=== PATIENT | male | born 1955 | race Caucasian/White ===

== ENCOUNTER 2019-03-10 05:04 | Inpatient (IN) | payer OTHER ==
[~2019-03-10] VITALS: Ht 175.3 cm; Wt 98.1 kg
[~2019-03-10 05:04] MED LIST: ONDANSETRON 4 MG TAB.RAPDIS ONE
--- NOTE | 2019-03-10 05:20 | NUR ---
DAY SURGERY ADMISSION NOTES Received patient from home A/O x4, awake. Assisted to bed comfortably, noted with steady gait with cane. at bedside. Belongings taken cared of by the . Admission routine done. Skin assessment done, photo taken and documented. Consents signed by the patient. Kept on bed clean, dry and comfortable. Call light at bedside.
[2019-03-10 05:44] VITALS: BP 144/96
[2019-03-10] MEDS ORDERED: CEFAZOLIN 1 GM ONE (05:57)
[2019-03-10] MEDS ORDERED: TRANEXAMIC ACID 3,000 MG in SODIUM CHLORIDE IRRIG SOLUTION 70 ML IR ONE (06:00)
[2019-03-10] MEDS ORDERED: CEFAZOLIN 1 GM in IV NS 0.9% 50 ML IV SCH (06:00)
--- NOTE | 2019-03-10 06:10 | NUR ---
MS RN NOTES Patient picked up by 2 OR staff for the scheduled surgery Left total knee arthroplasty via hospital bed. Endorsed to OR staff the Ancef 1gm. OR staff notified Tranexamic Acid not available at the floor. Patient's belongings taken cared of by the .
[2019-03-10] MEDS ORDERED: BUPIVACAINE MPF 0.5% W/EPI INJ 30 ML VIAL ONE (06:28)
[2019-03-10] MEDS ORDERED: BACITRACIN 50000 UNITS/VIAL ONE (06:28)
[2019-03-10] MEDS ORDERED: HYDROMORPHONE 1 MG/1 ML DISP.SYRIN SQ PRN (06:30)
[2019-03-10] MEDS ORDERED: ONDANSETRON HCL/PF 4 MG/2 ML VIAL IV PRN (06:30)
[2019-03-10] MEDS ORDERED: diphenhydrAMINE HCL 25 MG CAPSULE PO PRN (06:30)
[2019-03-10] MEDS ORDERED: MORPHINE SULFATE/PF 30 MG in IV NS 0.9% 27 ML, PCA TOTAL VOLUME 1 BAG IV PRN ×3 (06:30)
[2019-03-10] MEDS ORDERED: MAG HYDROX/AL HYDROX/SIMETH 30 ML UDC PO PRN (06:30)
[2019-03-10] MEDS ORDERED: LORAZEPAM 1 MG TABLET PO SCH (06:30)
[2019-03-10] MEDS ORDERED: MIDAZOLAM HCL 2 MG/2ML VIAL ONE (06:32)
[2019-03-10] MEDS ORDERED: FENTANYL PF 250MCG/5ML AMPUL ONE ×2 (06:33)
[2019-03-10] MEDS ORDERED: ROCURONIUM BROMIDE 50 MG/5 ML ONE (06:34)
[2019-03-10] MEDS ORDERED: MEPERIDINE HCL/PF 100 MG/ML DISP.SYRIN ONE (06:34)
[2019-03-10] MEDS ORDERED: FAMOTIDINE/PF INJ 20 MG/2 ML VIAL IV ONE (06:34)
[2019-03-10] MEDS ORDERED: HYDROMORPHONE MDV 30 MG in IV NS 0.9% 15 ML, PCA TOTAL VOLUME 1 BAG IV PRN ×3 (07:00)
[2019-03-10] MEDS ORDERED: ATOR10TA PO (07:28)
--- NOTE | 2019-03-10 07:32 | NUR ---
RN medsurg notes Informed Pharm[facility] that Pt is taking lipitor 5mg and Vancomycin. Will endorse to morning nurse.
[2019-03-10] MEDS: FAMOTIDINE (20 MG) 20 MG TABLET PO SCH ×3 (08:57→21:44)
[2019-03-10] MEDS ORDERED: HYDROMORPHONE INJ 2 MG/ML DISP.SYRIN ONE (09:00)
[2019-03-10] MEDS ORDERED: FENTANYL PF 100MCG/2ML AMPUL ONE (09:19)
[2019-03-10] MEDS ORDERED: ZOFRAN 4mg/2ML IV PRN (10:00)
[2019-03-10] MEDS ORDERED: DULCOLAX 10 MG/SUPP.RECT RC PRN (10:00)
[2019-03-10] MEDS ORDERED: SENOKOT 8.6 MG TABLET PO PRN (10:00)
[2019-03-10] MEDS ORDERED: HYDROCODONE/APAP 5/325MG 1 EACH TABLET PO PRN (10:00)
[2019-03-10] MEDS ORDERED: TYLENOL 650 MG TABLET PO PRN (10:00)
[2019-03-10] MEDS ORDERED: COLACE 250 MG CAPSULE PO PRN (10:00)
--- NOTE | 2019-03-10 10:15 | NUR ---
MS AMERICAN INDIAN STUDIES PROFESSOR NOTES RECEIVED PT FROM O.R. S/P REVISION OF LT TOTAL KNEE ARTHROPLASTY BY DR RAMOS. ALERT AND ORIENTED X4.VERBALLY RESPONSIVE. NO SOB WITH O2 AT 2L/MIN VIA NC.DENIES ANY PAIN AT THIS TIME.PT SLEEPING BUT AROUSABLE.WITH LLE IMMOBILIZER ON AND WITH ICE PACKS APPLIED TO LLE.WITH PATRICIA MIDLINE INTACT.STARTED ON MORPHINE DRIP VIA ACCOUNTING LECTURER WITH ACCOUNTING LECTURER DEMAND DOSE OF 1 MG -LOCKOUT OF 10 MINS WITH 1 HR LIMIT OF 6 MG.PT TEACHING PROVIDED ON HOW TO USE THE ACCOUNTING LECTURER BOLUS DOSE . PT EVAL TX,NO MOTION AND FIRST DRESSING TO BE CHANGED ONLY BY .FOR ID CONSULT WITH JONNY ESPINOZA.WITH FAMILY AT THE BEDSIDE.INCENTIVE SPIROMETER INITIAL TEACHING PROVIDED BY R.T. CALL LIGHT PLACED WITHIN REACH.
[2019-03-10] MEDS: MORPHINE SULFATE/PF 30 MG in IV NS 0.9% 27 ML, PCA TOTAL VOLUME 1 BAG IV PRN ×6 (10:46→20:57)
--- NOTE | 2019-03-10 11:06 | NUR ---
WOUND CARE CONSULT: PER TRIMMER PRESS CLIPPINGS NINO, WOUND CONSULT WAS ORDERED IN ERROR. PT NOT SEEN FOR SKIN ASSESSMENT. DEFER TO SURGEON.
[2019-03-10 12:30] LABS: HEMOGLOBIN 11.1 g/dL (13.5-17.5)
[2019-03-10] MEDS: BETHANECHOL CHLORIDE (25 MG) 25 MG TABLET PO SCH ×3 (13:00→21:44)
[2019-03-10] MEDS: IV D5/0.45 NACL 1,000 ML IV PRN (14:15)
[2019-03-10] MEDS: ANCEF 1 G in IV D5W 50 ML IV SCH (15:34)
[2019-03-10 16:00] VITALS: BP 150/101
[2019-03-10] MEDS ORDERED: VANCOMYCIN 1 GM in IV D5W 250 ML IV SCH (16:30)
--- NOTE | 2019-03-10 17:38 | NUR ---
PT RESTING IN BED WITH PAIN MGT EFFECTIVE WITH ONGOING EQUIPMENT MAINTENANCE ENGINEER MORPHINE SULFATE FOR BOLUS DOSE OF 1 MG WITH LOCKOUT OF 10 MINS.TOTAL DOSE GIVEN DURING THE SHIFT WAS 19 MG (19.1 ML INFUSED AND 10.9 ML LEFT). AT THE BEDSIDE.DENIES SOB OR DISTRESS.
[2019-03-10 17:52] LABS: CALCIUM, SERUM 7.6 mg/dL (8.5-10.1); CREATININE 1.1 mg/dL (0.6-1.3); POTASSIUM 3.7 mmol/L (3.5-5.1)
[2019-03-10 20:00] VITALS: BP 157/98
[2019-03-10 20:11] VITALS: BP 157/98
[2019-03-10] MEDS: TAMSULOSIN 0.4 MG CAP.SR.24H PO SCH (21:44)
[2019-03-10] MEDS: LORAZEPAM 1 MG TABLET PO SCH (21:44)
--- NOTE | 2019-03-10 21:58 | NUR ---
recieved alert and orientated at his side right foot 3+ swollen immobilizer on dressing CDI pulse ox 98 %
[2019-03-10] MEDS ORDERED: AMBIEN 5 MG TABLET PO PRN (22:00)
--- NOTE | 2019-03-10 22:00 | NUR ---
MS RN NOTES Assume care of this patient. Asleep on bed comfortably.
[2019-03-11] MEDS: ANCEF 1 G in IV D5W 50 ML IV SCH ×2
[2019-03-11] MEDS: IV D5/0.45 NACL 1,000 ML IV PRN (02:26)
--- NOTE | 2019-03-11 07:07 | NUR ---
MS RN CLOSING NOTES Patient asleep on bed, with R leg with SCD, L Leg with surgical incision dressing clean dry and intact, kept immobilized as ordered. On SALES AND MERCHANDISING ASSOCIATE pump with 17mg infused within the shift, with 21 attempts. No new complaints. All due meds given as ordered. Kept on bed clean, dry and comfortable. Call light within easy reach. at bedside. Endorsed to the next shift.
--- NOTE | 2019-03-11 07:20 | NUR ---
rn opening notes reveived patient in bed resting. at [facility]. a/ox4. not in any form of distress, no sob. on paralegal supervisor pump. iv access intact and patent. s/p revision of left total knee arthroplsty on 03/10, left knee immobilizer in place. dressing c/d/i, MD to change 1st dressing. kept patient safe and comfortable. bed in low/locked psotion, siderails upx2, call light in reach. will cont to moniotr accrdingly.
[2019-03-11 08:00] VITALS: BP 166/92
--- NOTE | 2019-03-11 09:00 | NUR ---
RN NOTES REFUSED SKIN ASSESSMENT.
[2019-03-11] MEDS: FAMOTIDINE (20 MG) 20 MG TABLET PO SCH ×2 (09:01→21:12)
[2019-03-11] MEDS: ASPIRIN EC 325 MG TABLET.DR PO SCH ×2 (09:01→16:15)
[2019-03-11] MEDS: BETHANECHOL CHLORIDE (25 MG) 25 MG TABLET PO SCH ×3 (09:01→21:12)
[2019-03-11] MEDS: MORPHINE SULFATE INJ 4 MG/ML DISP.SYRIN IM PRN (09:14)
--- NOTE | 2019-03-11 09:21 | NUR ---
rn notes patient complaints of pain even with scientific artist pump. per patient, scientific artist pump only relieves a little bit, from 10/10 to 8/10. patient pain level now is 8/10, aching. morphine 4mg im given as ordered. will reassess patient accordingly.
[2019-03-11] MEDS ORDERED: FEE PK DOSING 1 MIN EA MC ONE (09:23)
--- NOTE | 2019-03-11 09:51 | NUR ---
rn notes reassessed patient, verbalized pain relief, pain scale now is 4/10. will moniotr accordingly
[2019-03-11] MEDS: VANCOMYCIN 1 GM in IV D5W 250 ML IV SCH ×2 (11:04→21:12)
[2019-03-11] MEDS: HYDROCODONE/APAP 10/325MG 1 EA TABLET PO PRN ×2 (11:20→18:42)
[2019-03-11] MEDS ORDERED: CLONIDINE HCL 0.1 MG TABLET PO PRN (11:30)
[2019-03-11] MEDS ORDERED: KEY,NONCONTROL,TO KEEP IN PYXI 1 EA MC ONE (12:24)
--- NOTE | 2019-03-11 13:00 | NUR ---
RN NOTES RECEIVED 1 MORPHINE BAG FOR DIRECTOR HOSPICE OPERATIONS PUMP AND PLACED IT IN THE NARCOTIC BOX IN MEDROOM
[2019-03-11 16:11] VITALS: BP 139/96
[2019-03-11] MEDS: DOCUSATE SODIUM 100 MG CAPSULE PO SCH (16:15)
--- NOTE | 2019-03-11 16:21 | NUR ---
RN NOTES OFFERED PATIENT TO BE REPOSITIONED X4 BUT PATIENT SAID "ITS OK, IM GOOD, I CAN MOVE".
--- NOTE | 2019-03-11 19:05 | NUR ---
CELESTINA MS OPENING NOTES RECEIVED PATIENT IN BED AWAKE ALERT AND ORIENTED X4, RESPIRATIONS EVEN AND UNLABORED WITH EQUAL RISE AND FALL AND CHEST, IV SITE TO RIGHT UPPER ARM MIDLINE, INTAKCTAND PATENT, NO REDNESS, NO INFILTRATION PRESENT,DRESSING REMAINS CLEAN DRY AND INTACT. SAFETY PRECAUTIONS IN PLACE, LOW BED AND LOCKED, CALL LIGHT KEPT WITHIN REACH, URINAL KEPT WITHIN REACH, DRESSING TO LEFT KNEE SURGERY SITE REMAINS CLEAN AND INTACT, IMMOBILIZER IN PLACE, Addendum: 03/11/19 at 2207 by KEVIN PETERS RN SKIN PASS OPERATOR PUMP IN PLACE, DENIES ANY PAIN AT THIS TIME, STATES COMFORTABLE. SKIN PASS OPERATOR PUMP RECEIVED AT 18MG. WILL CONTINUE TO MONITOR ALL NEEDS ATTENDED AT THIS TIME.
--- NOTE | 2019-03-11 19:30 | NUR ---
RN CLOSING NOTES PATIENT IN STABLE CONDITION. ALL NEEDS ATTENDED AND PROVIDED. ALL DUE MEDS GIVEN ORDERED. ASSISTED PATIENT WITH ADLS. KEPT PATIENT SAFE AND COMFORTABLE. BED IN LOW/LOCKED PSOTION, SIDERAILS UPX2, CALL LIGHT IN REACH. ENDORSED TO NIGHT RN FOR JESSA.
[2019-03-11 20:00] VITALS: BP 152/100
--- NOTE | 2019-03-11 20:00 | NUR ---
RN MS NOTES NOTED PATIENT B/P AT 152/100, HR 82 PATIENT REMAINS ASYMPTOMATIC, STATES BLOOD PRESSURE HAS BEEN HIGH SINCE INFECTION AND AFTER SURGERY. ASSESSED PATIENT B/P TRENDS NOTED RANGING ABOUT SBP 150'S, ASKED PATIENT IF IN PAIN STATES HES OKAY WHEN IN BED ,BUT DOES FEEL PAIN WHEN THERE IS MOVEMENT, AT THIS TIME PATIENT DOES NOT WANT PAIN MEDICATION WHEN OFFERED. CLINICAL ATHLETIC INSTRUCTOR PUMP ALSO NOT USED AT THIS TIME.CONTINUOUS PULSE OX IN PLACE. WILL CONTINUE TO MONITOR B/P , MADE PATIENT AWARE IF SBP TRENDS AT 160 PRN WILL HAVE TO GIVEN TO MANAGE ELEVATED BLOOD PRESSURE WILL CONTINUE TO MONITOR VITAL SIGNS.
[2019-03-11 20:28] VITALS: BP 152/100
[2019-03-11] MEDS: MORPHINE SULFATE/PF 30 MG in IV NS 0.9% 27 ML, PCA TOTAL VOLUME 1 BAG IV PRN ×3 (20:56)
--- NOTE | 2019-03-11 21:05 | NUR ---
RN MS NOTES CORRECTIONS UNIT SUPERVISOR PUMP CHANGED AT THIS TIME WITNESSED WITH ANOTHER RN AND WASTED WITH ANOTHER RN WASTE RECORDED ON YELLOW FORM PLACED IN CHART 12ML WASTED.
[2019-03-11] MEDS: TAMSULOSIN 0.4 MG CAP.SR.24H PO SCH (21:13)
[2019-03-11] MEDS: LORAZEPAM 1 MG TABLET PO SCH (21:13)
--- NOTE | 2019-03-11 21:13 | NUR ---
RN MS NOTES ATIVAN WASTED ORDERED FOR PARTIAL DOSE 0.5MG,1/2 TAB WASTED AND WITNESSED WITH ANOTHER RN
--- NOTE | 2019-03-12 06:26 | NUR ---
RN MS NOTES RECEIVED CALL FROM WITH NEW ORDERS - DO NOT REPLACE MORPHINE SULFATE BAG. - DISCONTINUE RETAIL MANAGER WHEN BAG EXPIRES AND IV TO BE HEPLOCKED. UPDATED MD ON PATIENTS CONDITION.
--- NOTE | 2019-03-12 06:50 | NUR ---
RN MS CLOSING NOTES PATIENT IN BED AWAKE ALERT AND ORIENTED X4, RESPIRATIONS EVEN AND UNLABORED WITH EQUAL RISE AND FALL OF CHEST, CONTINUOUS PULSE OX IN PLACE,SP02 WNL THROUGHOUT SHIFT 97%, SCD IN PLACE, IV SITE TO RIGHT UPPER ARM MIDLINE, INTACT AND PATENT, NO REDNESS, NO INFILTRATION PRESENT,DRESSING REMAINS CLEAN DRY AND INTACT. SAFETY PRECAUTIONS IN PLACE, LOW BED AND LOCKED, CALL LIGHT KEPT WITHIN REACH, URINAL KEPT WITHIN REACH, DRESSING TO LEFT KNEE SURGERY SITE REMAINS CLEAN AND INTACT, IMMOBILIZER IN PLACE, FLUIDS OFFERED. SENIOR QC TECHNICIAN PUMP IN PLACE, DENIES ANY PAIN AT THIS TIME. PATIENT USED SENIOR QC TECHNICIAN PUMP X1 THROUGHOUT SHIFT (1MG) RECEIVED. WILL CONTINUE TO MONITOR ALL NEEDS ATTENDED AT THIS TIME AND WILL ENDORSE TO NEXT SHIFT, ALL MEDS GIVEN ORDERED WITH NO ADVERSE REACTIONS PRESENT.
[2019-03-12 06:55] LABS: CALCIUM, SERUM 7.9 mg/dL (8.5-10.1); CREATININE 1.1 mg/dL (0.6-1.3); POTASSIUM 2.9 mmol/L (3.5-5.1)
--- NOTE | 2019-03-12 06:55 | NUR ---
B/P WAS ASSESSED THROUGHOUT SHIFT SBP RANGING FROM 140-150'S, ASYMPTOMATIC , NO NEED FOR PRN CLONIDINE THIS SHIFT SBP BELOW 160.
--- NOTE | 2019-03-12 07:30 | NUR ---
M/S RN OPENING NOTES RECEIVED PT ON BED, A/O X 4, ABLE TO MAKE NEEDS KNOWN. NO SOB NOTED, ON ROOM AIR. ABD SOFT AND NON DISTENDED WITH ACTIVE BOWEL SOUNDS, LBM 10/17, ABLE TO PASS GAS, URINAL ON BEDSIDE. PAIN SCALE OF 8/10 AT LEFT LEG WITH NUCLEAR FUEL PROCESSING TECHNICIAN PUMP 1MG EVERY 10 MINUTES MAX, LAST PUMP 0645. SKIN WARM TO TOUCH AND DRY, FEET ABLE TO MOVE WITH SENSE OF TOUCH. RIGHT UPPER ARM MIDLINE, PATENT IN FLUSHING. ALL CONCERNS ADDRESSED. CALL LIGHT WITHIN REACH. ON BEDSIDE. WILL CONTINUE TO MONITOR CARE.
--- NOTE | 2019-03-12 07:52 | NUR ---
M/S RN NOTES PT SEEN BY DR. BENÍTEZ. PAIN MEDICATION NORCO TO BE PRESCRIBED FOR DC. PT AND NOTIFIED. OK TO DC LIVING COACH PUMP PER PT PREFERENCES.
[2019-03-12 08:00] VITALS: BP 143/98
--- NOTE | 2019-03-12 08:30 | NUR ---
M/S RN NOTES PT SEEN BY DR COLE BUT BEING SEEN BY PT. WITH NEW ORDER TO CHANGE MIDLINE TO PICC LINE FOR IV ATB X 6 WKS ONCE DC. TO RETURN FOR EVAL. PT NOTIFIED
[2019-03-12] MEDS ORDERED: POTASSIUM CHLORIDE 20 MEQ TAB.PRT.SR PO SCH (09:00)
--- NOTE | 2019-03-12 09:00 | NUR ---
M/S RN NOTES PT EVAL DONE, ABLE TO TOLERATE STAND WITH ASSIST WITH FWW. DRESSING CHANGED. UNABLE TO TAKE A PICTURE.
[2019-03-12] MEDS: VANCOMYCIN 1 GM in IV D5W 250 ML IV SCH (09:19)
[2019-03-12] MEDS: DOCUSATE SODIUM 100 MG CAPSULE PO SCH (09:19)
[2019-03-12] MEDS: BETHANECHOL CHLORIDE (25 MG) 25 MG TABLET PO SCH ×2 (09:19→12:06)
[2019-03-12] MEDS: ASPIRIN EC 325 MG TABLET.DR PO SCH (09:19)
[2019-03-12] MEDS: FAMOTIDINE (20 MG) 20 MG TABLET PO SCH (09:19)
--- NOTE | 2019-03-12 09:30 | NUR ---
M/S RN NOTES OBTAINED PICC LINE CONSENT
--- NOTE | 2019-03-12 10:02 | NUR ---
M/S RN NOTES DOROTHEA NAVA NOTIFIED FOR DISCHARGE ORDER
--- NOTE | 2019-03-12 11:30 | NUR ---
M/S RN NOTES PT RECEIVED FLU VACCINE AT [facility] ON 03/03/2019. PNEUMO VACCINE NOT APPLICABLE DUE TO <65 Y/O
--- NOTE | 2019-03-12 15:07 | NUR ---
M/S RN NOTES PICC LINE INSERTED AT RIGHT BRACHIAL 45 CM WITH 1 CM OUT.
[2019-03-12] MEDS: MORPHINE SULFATE INJ 4 MG/ML DISP.SYRIN IM PRN (15:15)
[2019-03-12] MEDS ORDERED: KEY,NONCONTROL,TO KEEP IN PYXI 1 EA MC ONE (15:34)
--- NOTE | 2019-03-12 16:00 | NUR ---
M/S CONTACT ACID PLANT OPERATOR NOTES PT DISCHARGE TO HOME ACCOMPANIED BY WITH PRIVATE CAR TRANSPORTATION WHEELED OUT BY MORTGAGE LOAN COMPUTATION CLERKKrzysztof LUNA. PT A/OX4, ABLE TO MAKE NEEDS KNOWN. RESPIRATION EVEN AND NON LABORED WITH NO ACUTE RESPIRATORY DISTRESS, TOLERATING ROOK AIR TEMP, ADVISED CONTINUE TO USE OF INCENTIVE SPIROMETER. ABDOMEN SOFT AND NON DISTENDED WITH ACTIVE BOWEL SOUNDS, LBM 03/10/2019 WITH NO ABDOMINAL PAIN REPORTED, PRESENCE OF FLATUS. PATIENT STATED HE HAVEN'T EATING A LOT OF MEALS DUE TO IMMOBILITY AND WILL ATTEMPT ONCE HOME. SKIN WARM TO TOUCH AND DRY. LEFT LEG WRAP WITH BANDAGE WITH NO S/SX ON BLEEDING NOTED FOR S/P REVISION OF KNEE DONE ON 03/10/2019, NO NEW OPEN SKIN BREAKDOWN. COMPLAIN OF PAIN ON AND OFF WHEN LEGS ARE BEING MOVED BUT TOLERABLE. EXIT CARE PROVIDED WITH PATIENT AND JACOB, PRESCRIPTION FOR PAIN MANAGEMENT FROM DR. BENÍTEZ GIVEN FOR REFILL. HOME HEALTH IN CONTACT WITH MS. JAMES. PICC LINE PATENT IN FLUSHING ON RIGHT BRACHIAL ARM 45 CM WITH 1 CM OUT. FIELD ARTILLERY OFFICER PUMP DISPOSED 18 ML WITH CRAIG WITNESSED. ALL CONCERNS ADDRESSED. PT DISCHARGED IN STABLE CONDITION AND SAFELY. THANKFUL WITH SERVICES PROVIDED.
== END 2019-03-12 16:00 | disposition home health service (06) | DRG 467 ==
LOC: DS 05:04 → MED 05:05
PROVIDERS: ADMIT Internal Medicine; ATTEND Internal Medicine
DX: T84.54XA Infection and inflammatory reaction due to internal left knee prosthesis, initial encounter (principal); M00.9 Pyogenic arthritis, unspecified; D62 Acute posthemorrhagic anemia; L03.116 Cellulitis of left lower limb; Y83.1 Surgical operation with implant of artificial internal device as the cause of abnormal reaction of the patient, or of later complication, without mention of misadventure at the time of the procedure; X58.XXXA Exposure to other specified factors, initial encounter; F17.200 Nicotine dependence, unspecified, uncomplicated; M17.12 Unilateral primary osteoarthritis, left knee; M65.88 Other synovitis and tenosynovitis, other site; Y92.009 Unspecified place in unspecified non-institutional (private) residence as the place of occurrence of the external cause
CPT/HCPCS: 36415; 71045-TC; 80048-TC; 80202-TC; 82962-TC; 85027-TC; 87070-TC; 87075-TC; 87081-TC; 88305-TC; 88312-TC; A4216; C1751; G0378; J0690; J1170; J2175; J2250; J2270; J2274; J2405; J2704; J2710; J2765; J3010; J3370; J3490; J7050; J7060; Q0162